=== PATIENT | female | born 1995 | race Caucasian/White ===

== ENCOUNTER 2017-04-06 19:24 | Observation (INO) | payer BC, MEDICAID ==
[2017-04-06] MEDS ORDERED: metroNIDAZOLE/SODIUM CHLORIDE 500 MG/100 ML BAG IV ONE (19:42)
[2017-04-06] MEDS ORDERED: LEVOFLOXACIN/D5W 750 MG/150 ML BAG IV ONE (19:43)
--- NOTE | 2017-04-06 19:46 | ERNOTE ---
Abdominal HPI - General Chief Complaint: Abdominal Pain Time Seen by Provider: 04/06/17 19:25 Source: patient Exam Limitations: no limitations - Immun/Allergies/Home Medications Immunizatons: IMMUNIZATION HX Immunizations Up to Date Yes History of Influenza Vaccine No Hx Pneumococcal Vaccination No Allergies/Adverse Reactions: Allergies No Known Allergies Allergy (Unverified 04/06/17 19:31) Home Medications: HOME MEDICATIONS NK [No Home Medication] 04/06/17 [Last Taken Unknown] - History of Present Illness Narrative: Patient presents with acute right lower quadrant abdominal pain onset of symptoms was last night has been getting progressively worse she rates the pain as moderate in intensity. Patient was seen at [facility] and lab work and CT were done and they revealed acute appendicitis with an 18,000 WBC count. Timing: constant, getting worse Quality: moderate Activities at Onset: none Associated Symptoms: Present: fever/chills Prior Abdominal Problems: Present: none Prior Treatment: Present: recently seen Review of Systems - Review of Systems Constitutional: Present: See HPI EYE: Present: no symptoms reported ENT: Present: no symptoms reported Respiratory: Present: no symptoms reported Cardiology: Present: no symptoms reported Gastrointestinal/Abdominal: Present: abdominal pain Genitourinary: Present: no symptoms reported Musculoskeletal: Present: no symptoms reported Skin: Present: no symptoms reported Neurological: Present: no symptoms reported Endocrine: Present: no symptoms reported Hematologic/Lymphatic: Present: no symptoms reported Psych: Present: no symptoms reported - Patient's Past Medical History Patient History - Medical: UTI'S Patient History - Cardiac/Respiratory: No pertinent hx Patient History - Cancer: No Hx of Cancer Patient History - Surgical Procedures: T & A, ENT Patient History - Other: None - Social History Living Situations: home Abuse History: No History of abuse Psych History: No pertinent hx Smoking Status: Current every day smoker Have you smoked in the past 12 months: Yes Alcohol Use: rarely Drug Use: none - Immunizations Immunizations Up to Date: Yes Hx Pneumococcal Vaccination: No History of Influenza Vaccine: No Physical Exam - Physical Exam General Appearance: Present: wd/wn, alert, moderate distress Eye Exam: Normal inspection: bilateral, PERRL: bilateral Ears, Nose, Throat: Present: normal ENT inspection, H, normal pharynx Neck: Present: normal inspection, nontender Respiratory: Present: no respiratory distress, normal breath sounds, no accessory muscle use, chest nontender, lungs clear Cardiovascular/Chest: Present: regular rate, rhythm, no murmur, normal peripheral pulses Gastrointestinal/Abdominal: Present: normal bowel sounds, nondistended, tenderness, guarding, rebound, McBurney sign Rectal Exam: Present: deferred Back Exam: Present: normal inspection, normal range of motion Extremity Exam: Present: normal inspection, non-tender, no edema, normal range of motion Neurological Exam: Present: alert, oriented, normal mood/affect Skin Exam: Present: normal color, warm/dry Lymphatic Exam: Present: no adenopathy ED Progress - Results and Orders Patient's Lab Results:: I have reviewed the patient's lab results. - Vital Signs Patient's Vital Signs:: I have reviewed the patient's vital signs. Vital Signs: Vital Signs 04/06/17 04/06/17 19:31 19:36 Temperature 37.2 C 37.2 C Pulse Rate 110 H 110 H Respiratory 16 15 Rate Blood Pressure 119/65 119/65 O2 Sat by Pulse 98 98 Oximetry - CT/Ultrasound CT/Ultrasound Narrative: CT was done and kick as reviewed by me which revealed acute appendicitis. - Progress/Reassessment Chief Complaint: Abdominal Pain Plan - Plan Plan: Patient will be admitted to hospital. I discussed case with Dr. Paige and then he asked that we give the patient 750 Levaquin 500 of Flagyl IV and she will be ready for surgery most likely first thing in the morning. Departure - Departure Clinical Impression: Appendicitis, acute Qualifiers: Acute appendicitis type: with localized peritonitis Qualified Code(s): K35.3 - Acute appendicitis with localized peritonitis Disposition: [facility] Condition: Fair
[2017-04-06] MEDS ORDERED: ONDANSETRON HCL/PF 2 MG/ML VIAL IV PRN (21:00)
[2017-04-06] MEDS ORDERED: ACETAMINOPHEN 650 MG SUPP.RECT RC PRN (21:01)
[2017-04-06] MEDS ORDERED: MORPHINE SULFATE 2 MG/ML DISP.SYRIN IV PRN (21:18)
[2017-04-06] MEDS: metroNIDAZOLE/SODIUM CHLORIDE 500 MG/100 ML BAG IV SCH (21:39)
[2017-04-06] MEDS: RINGER'S SOLUTION,LACTATED 1,000 ML IV PRN (21:39)
[2017-04-07] MEDS: metroNIDAZOLE/SODIUM CHLORIDE 500 MG/100 ML BAG IV SCH (05:27)
[2017-04-07] MEDS: RINGER'S SOLUTION,LACTATED 1,000 ML IV PRN (05:27)
--- NOTE | 2017-04-07 07:56 | HP ---
Chief Complaint - Chief Complaint Date of Service: 04/07/17 Time of Service: 07:53 Chief Complaint: Right flank pain History of Present Illness: Onset of right flank pain yesterday morning. ER [facility] had WBC 18K and CT c/w appendicitis. Transferred here for definitive therapy. - Patient's Past Medical History Patient History - Medical: No pertinent hx, UTI'S Patient History - Cardiac/Respiratory: No pertinent hx Patient History - Cancer: No Hx of Cancer Patient History - Surgical Procedures: T & A, ENT Patient History - Other: None LMP (Calendar): 03/01/17 - Family History Family History:: no untoward family reactions to anesthesia - Family History Mother Family History - Medical: No pertinent hx Father Family History - Medical: No pertinent hx - Social History Living Situations: spouse Abuse History: No History of abuse Psych History: No pertinent hx Smoking Status: Current every day smoker Have you smoked in the past 12 months: No Do you dip or chew tobacco: No Patient requests Smoking Cessation Consult: No Initiate information on Smoking Cessation: Yes Alcohol Use: rarely Drug Use: none - Immunizations Immunizations Up to Date: Yes Hx Pneumococcal Vaccination: No History of Influenza Vaccine: No Review Of Systems (GEN) - Review of Systems Misc: All systems neg except as marked Allergies/Adverse Reactions: Allergies Allergy/AdvReac Type Severity Reaction Status Date / Time No Known Allergies Allergy Verified 04/06/17 20:24 Home Medications: HOME MEDICATIONS NK [No Home Medication] 04/06/17 [Last Taken Unknown] Exam - Exam Vital Signs: Vital Signs - Last Taken Temp 36.2 C L 04/07/17 07:36 Pulse 78 04/07/17 07:36 Resp 18 04/07/17 07:36 BP 120/50 04/07/17 07:36 Pulse Ox 99 04/07/17 07:36 Constitutional: Present: Alert, Oriented x3, Cooperative, Well developed, Well nourished, No distress ENT Exam: Present: normal ENT inspection Eye Exam: bilateral eye: normal inspection Respiratory: Present: normal breath sounds, no respiratory distress Cardiovascular/Chest: Present: regular rate, rhythm, no murmur Abdomen: Present: Normal bowel sounds, other - tender right flank Extremity: Present: normal inspection Neurologic: Present: no motor/sensory deficits Diagnostic Studies: Laboratory Results Serum HCG, Qual Negative (NEGATIVE) 04/06/17 22:02 Assessment/Plan - Narrative Narrative: A: Acute appendicitis P: Plan lap appy. The options, risks, and benefits were reviewed fully. She seems to understand, asks appropriate questions, and desires to proceed.
[2017-04-07] MEDS ORDERED: RINGER'S SOLUTION,LACTATED 800 ML IV ONE (08:10)
[2017-04-07] MEDS ORDERED: BUPIVACAINE HCL/EPINEPHRINE 50 ML VIAL IJ ONE (08:30)
--- NOTE | 2017-04-07 09:23 | OR ---
Operative Report - Dictated Report Narrative: Date: 04/07/2017 Preop dx: acute appendicitis Postop dx: same Procedure: laparoscopic appendectomy Staff surgeon: Chi Paige MD Asst surgeon: Krzysztof Guerrero, M3 EBL: minimal Specimen: appendix Anesthesia: GETA Comps: none apparent Indications: WBC 18K, RLQ abdominal pain, CT c/w acute appendicitis Description: Pt placed in supine position. Following smooth induction of GETA, a nieves catheter was inserted and the abdomen was prepped and draped in a sterile fashion. All port sites were anesthetized with marcaine prior to incision. 5mm infraumbilical incision made and perforating towel clip placed for counter traction. Abdomen entered under direct vision with 5mm blunt port with a scope in the lumen of the trocar. Abdomen then insufflated to 15 mmHg with carbon dioxide. Under direct vision a suprapubic 12mm and LLQ 5mm port were inserted. Inspection revealed minimal peritoneal blood throughout. All port sites were hemostatic and this is likely a hemorrhagic ovarian cyst etiology. The ovaries were not visualized. The appendix had minimal inflammation and was not ruptured. The appendix was elevated and mesoappendix taken in continuity with a thunderbeat. The appendix was then transected at its base with an endoGIA. The appendix was placed in an endocatch bag and delivered from the abdomen through the suprapubic port. Inspection was carried out. The staple line was hemostatic. The pneumoperitoneum was evacuated and ports removed. Incisions closed with subcuticular 4-0 pds and sealed with dermabond. Pt tolerated the procedure well without apparent complications and was discharged from the OR in stable condition.
[2017-04-07] MEDS ORDERED: oxyCODONE HCL/ACETAMINOPHEN 1 TAB TABLET PO PRN (09:29)
[2017-04-07] MEDS ORDERED: RINGER'S SOLUTION,LACTATED 1,000 ML IV PRN (09:29)
[2017-04-07] MEDS ORDERED: MORPHINE SULFATE 2 MG/ML DISP.SYRIN IV PRN (09:39)
--- NOTE | 2017-04-07 10:36 | DS ---
Description of Stay: Pt admitted for acute appendicitis from [place]. Underwent lap appy and is discharged postop same day. Appendix was not perforated. Likely hemorrhagic ovarian cyst. Procedures Performed: see notes below List Procedures: Laparoscopic appendectomy Results and Findings: Non-perforated early acute appendicitis Discharge Disposition: Home self care Disposition: Home self-care Condition: Fair Discharge Activity: Activity as tolerated, No Lifting - x 1 wk Discharge Diet: General/regular food Complete Home Medications List: Complete Home Medication List: NK [No Home Medication] 04/06/17
[2017-04-07 13:36] VITALS: BP 121/67
== END 2017-04-07 14:02 | disposition home or self-care (01) ==
LOC: ER 19:24 → MS 19:48
PROVIDERS: ADMIT Specialist; ATTEND Specialist
PROC: 0DTJ4ZZ Resection of Appendix, Percutaneous Endoscopic Approach (ICD-10-PCS; principal; 2017-04-07 08:00)
DX: K35.80 Unspecified acute appendicitis (principal)
CPT/HCPCS: 44970; 84703; 88304; 96365; 96366; 96367; 96374; 99285; G0378

== ENCOUNTER 2020-05-30 06:07 | Inpatient (IN) ==
[2020-05-30] MEDS ORDERED: OXYTOCIN/0.9 % SODIUM CHLORIDE 30 UNITS/500 ML BAG IV ONE ×2 (06:49→19:35)
[2020-05-30] MEDS ORDERED: PENICILLIN G POTASSIUM 5 MILLIONUNT in DEXTROSE 5 % IN WATER 100 ML IV ONE ×2 (06:49)
[2020-05-30] MEDS ORDERED: RINGER'S SOLUTION,LACTATED 1,000 ML IV ONE (06:49)
[2020-05-30] MEDS ORDERED: ONDANSETRON 4 MG TAB.RAPDIS PO PRN (06:49)
[2020-05-30] MEDS: RINGER'S SOLUTION,LACTATED 1,000 ML IV PRN ×3 (07:29→18:07)
[2020-05-30] MEDS: PENICILLIN G POTASSIUM 2.5 MILLIONUNT in DEXTROSE 5 % IN WATER 100 ML IV SCH ×6 (10:51→18:45)
--- NOTE | 2020-05-30 15:42 | HP ---
Chief Complaint - Chief Complaint Date of Service: 05/30/20 Time of Service: 15:35 Chief Complaint: Labor induction History of Present Illness: 24 year old at 39w 6d who presented to labor and delivery for an elective IOL. She reports irregular ctx. She denies vb or lof. Medical History (Last Reviewed 05/30/20 @ 15:37 by Leydi Ann MD) Acute appendicitis Surgical History: Surgical History (Last Reviewed 05/30/20 @ 15:37 by Leydi Ann MD) History of placement of ear tubes History of appendectomy Hx of tonsillectomy Family History: Family History (Last Reviewed 05/30/20 @ 15:37 by Leydi Ann MD) Mother Alive and well Father Alive and well Social History: (Last Reviewed 05/30/20 @ 15:37 by Leydi Ann MD) Social History: adopted: No Marital status: household members: spouse, children number of children: 2 current occupational status: unemployed Highest education level completed: 12th grade, no diploma Sexually Active: Yes Service: No Tobacco: Smoking Status: Current every day smoker Alcohol: alcohol intake: never Substance Use: substance use type: does not use Dietary Habits: caffeine: Yes caffeine comment: 3 daily Type: coffee Review Of Systems (GEN) - Review of Systems Generalized/Overall Review: Present: No Symptoms Reported Misc: All systems neg except as marked Immunizations: IMMUNIZATION HX Immunizations Up to Date Yes History of Influenza Vaccine No Hx Pneumococcal Vaccination No Allergies/Adverse Reactions: Allergies Allergy/AdvReac Type Severity Reaction Status Date / Time No Known Allergies Allergy Verified 05/30/20 06:22 Home Medications: HOME MEDICATIONS vitamin no.138-folic acid 400 mcg-dha 25 mg chewable tablet 1 tab PO DAILY 11/27/19 [Last Taken 05/29/20] Exam - Exam Vital Signs: Vital Signs - Last Taken Temp 37 C 05/30/20 06:50 Pulse 98 05/30/20 06:50 Resp 16 05/30/20 06:50 BP 116/65 05/30/20 06:50 Pulse Ox 97 05/30/20 06:50 Constitutional: Present: Alert, Oriented x3, Cooperative ENT Exam: Present: hearing grossly normal Eye Exam: bilateral eye: normal inspection Neck: Present: normal inspection Back Exam: Present: normal inspection Breasts: Present: Exam deferred Respiratory: Present: lungs clear, normal breath sounds, no respiratory distress Cardiovascular/Chest: Present: regular rate, rhythm Abdomen: Present: soft, nontender, nondistended, no rebound tenderness /Rectal: Present: Other - 4/50/-2 AROM for clear fluid Extremity: Present: non-tender, no calf tenderness Skin Exam: Present: normal color, warm/dry, no cyanosis Neurologic: Present: alert, normal mood/affect, oriented x 3 Appearance: Present: appropriate appearance, appropriate insight, neat, no memory impairment Eye contact: Present: cooperative, good eye contact, normal speech Thoughts: Present: normal thought pattern Diagnostic Studies: Laboratory Results Blood Type O Positive 05/30/20 07:18 Antibody Screen Negative 05/30/20 07:18 Assessment/Plan - Narrative Narrative: 24 year old at 39w 6d 1. Elective IOL: On pitocin, AROM for augmentation 2. GBS positive: intrapartum prophylaxis
[2020-05-30] MEDS ORDERED: ONDANSETRON HCL/PF 2 MG/ML VIAL IV PRN (16:52)
[2020-05-30] MEDS ORDERED: BUPIVACAINE HCL/0.9 % NACL/PF 250 ML EP PRN (16:52)
[2020-05-30] MEDS ORDERED: NALOXONE HCL 1 MG/1 ML SYRG IV PRN (16:52)
[2020-05-30] MEDS ORDERED: fentaNYL CITRATE/PF 50 MCG/ML AMPUL IT SCH (17:00)
--- NOTE | 2020-05-30 17:50 | ANES ---
Anesthesia Pre Procedure Eval Vitals/Labs: Last Vital Signs Temp 37 C 05/30/20 06:50 Pulse 98 05/30/20 06:50 Resp 16 05/30/20 06:50 BP 116/65 05/30/20 06:50 Pulse Ox 97 05/30/20 06:50 HOME MEDICATIONS vitamin no.138-folic acid 400 mcg-dha 25 mg chewable tablet 1 tab PO DAILY 11/27/19 [Last Taken 05/29/20] Allergies/Adverse Reactions: Allergies Allergy/AdvReac Type Severity Reaction Status Date / Time No Known Allergies Allergy Verified 05/30/20 06:22 - Planned Procedure Planned Procedure: elective induction 39 wks +6 Medication List Reviewed:: Yes Allergies Verified: Yes Medical History (Last Reviewed 05/30/20 @ 17:49 by Paul Rowe CRNA) Acute appendicitis Surgical History (Last Reviewed 05/30/20 @ 17:49 by Paul Rowe CRNA) History of placement of ear tubes History of appendectomy Hx of tonsillectomy Family History (Last Reviewed 05/30/20 @ 17:49 by Paul Rowe CRNA) Mother Alive and well Father Alive and well - Family Anesthesia History Family History:: no untoward family reactions to anesthesia, no familial bleeding tendencies, no family history of clotting disorders, no family history of premature - Airway/Neck/Teeth Within Normal Limits:: Yes Teeth Condition: intact Neck Exam: full range of motion Mallampatti Score: 2 Thyromental (T-M) distance: > 6 cm Mandibulo Hyoid distance: > 3 cm - Respiratory Respiratory Physical: lungs clear Sleep Apnea currently treated: No Sleep Apnea by current assessment: No - Cardiovascular Tolerate Activity: Fair Heart Sounds: S1 & S2, Regular - Anesthesia Assessment and Plan ASA Class: PS, II, E Anesthesia Type Plan: Epidural - CSE for labor analgesia
--- NOTE | 2020-05-30 18:09 | ANES ---
Post Anesthesia Discharge - Transfer of Care Transfer of Care handoff given to nurse: Yes - Discharge from PACU Discharge from PACU when meets criteria: Yes - Comfortable post CSE.
--- NOTE | 2020-05-30 18:11 | ANES ---
Anesthesia Procedure Note Procedure Note: ANESTHESIA PROCEDURE NOTE Date of Procedure: 05/30/2020 Time of procedure: 1750. Performed by: JANE Landaverde CRNA, MSN Eligibility Counselor: Selam Mcleod RN. Preprocedure diagnosis: Active labor, labor pain. Post procedure diagnosis: Same. Procedure:Epidural for labor analgesia L3-4. Indications: Labor pain. Findings: See below. Details of the procedure: The patient was placed on the side of the bed in sitting positionand prepped with DuraPrep then draped in a sterile fashion. Lidocaine 1% was infiltrated to the skin and subcutaneous tissues at the level of the L3-4 interspace. An 18-gauge Touhy needle was used to approach the epidural space with loss of resistance technique. Once loss of resistance was achieved a 27-gauge spinal needle was passed through the epidural needle and CSF was contacted. After CSF returned, 20 mcg of fentanyl was injected in the spinal needle was removed the epidural catheter was then threaded approximately 4 cm in the epidural needle was removed. The catheter was taped in place and after careful aspiration 3 mL of 1.5% lidocaine with 1-200,000 epinephrine was injected without change in maternal heart rate or sensorium. . EBL: Minimal. Fluids: N/A. Specimen: N/A. Post procedure condition: The patient tolerated the procedure well with good relief. No complications were noted. Thank you for this consultation. Paul Rowe CRNA, ARNP, MSN
--- NOTE | 2020-05-30 18:16 | ANES ---
Post Anesthesia Assessment - Vital Signs Vitals: Last Vital Signs Temp 37 C 05/30/20 06:50 Pulse 98 05/30/20 06:50 Resp 16 05/30/20 06:50 BP 116/65 05/30/20 06:50 Pulse Ox 97 05/30/20 06:50 Airway Patency: Normal - Mental Status Level Of Consciousness: Awake, Alert, Appropriate - Pain Level Pain Score: 0 - N/V Assessment Nausea/Vomiting Presence: None Dehydration:: No
[2020-05-30] MEDS ORDERED: HYDROcodone/ACETAMINOPHEN 1 EACH TABLET PO PRN ×2 (19:35)
[2020-05-30] MEDS ORDERED: BISACODYL 10 MG SUPP.RECT RC PRN (19:35)
[2020-05-30] MEDS ORDERED: GLYCERIN/WITCH HAZEL LEAF 40 APPL BOX TP PRN (19:35)
[2020-05-30] MEDS ORDERED: SENNOSIDES 8.6 MG TABLET PO PRN (19:35)
[2020-05-30] MEDS ORDERED: HYDROCORTISONE 30 APPL TUBE TP PRN (19:35)
[2020-05-30] MEDS ORDERED: diphenhydrAMINE HCL 25 MG CAPSULE PO PRN (19:35)
[2020-05-30] MEDS ORDERED: BENZOCAINE/MENTHOL 81 SPRAY CAN TP PRN (19:35)
[2020-05-30] MEDS ORDERED: IBUPROFEN 800 MG TABLET PO PRN (19:35)
--- NOTE | 2020-05-30 19:35 | OR ---
Operative Report - Dictated Report Narrative: Date of delivery: 05/30/2020 Time of delivery: 1914 Gender: female weight: 3166 grams APGARS: 05/01 Procedure: Description of the procedure: The patient is a 24 year old at 39w 6d who presented to labor and delivery for an elective IOL. She received pitocin and was augmented with AROM. She progressed to complete dilation. She delivered a viable female infant in ENIO presentation. A loose nuchal cord was noted and it was reduced prior to delivery. The anterior shoulder delivered without difficulty followed by the rest of the infant. Cord clamping was delayed for 60 seconds due to vigorous infant. The cord was clamped and cut. Cord blood was collected. The placenta was delivered by expression and appeared intact. There were no lacerations. EBL: 100 mL Complications: none Specimens: cord blood History for MU Definition: * The number of deliveries resulting in a live the patient experienced prior to current hospitalization * The previous delivery of live twins or any live multiple gestation is considered one live event. *If primagravida or nulliparous is documented select zero for the number of previous live births. Live Events: 2
[2020-05-30] MEDS: PRENATAL VITS96/IRON FUM/FOLIC 1 TAB TABLET PO SCH (22:39)
[2020-05-30] MEDS: DOCUSATE SODIUM 100 MG CAPSULE PO SCH (22:39)
[2020-05-31] MEDS: PENICILLIN G POTASSIUM 2.5 MILLIONUNT in DEXTROSE 5 % IN WATER 100 ML IV SCH ×2 (01:32)
--- NOTE | 2020-05-31 09:21 | PN ---
Subjective - Date and Time Seen Date: 05/31/20 Time: 09:19 Subjective Narrative: Patient without complaints. Bleeding is minimal Objective Objective Narrative: See vital signs - Review of Systems Generalized/Overall Review: Reports: No Symptoms Reported Misc: All systems neg except as marked - Vitals Vitals: Last Vital Signs Temp 35.9 C L 05/31/20 08:32 Pulse 99 05/31/20 08:32 Resp 18 05/31/20 08:32 BP 116/63 05/31/20 08:32 Pulse Ox 96 05/31/20 08:32 - Exam Constitutional: Present: Alert, Oriented x3, Cooperative, No distress ENT Exam: Present: hearing grossly normal Abdomen: Present: soft, nontender, nondistended - fundus is firm Extremity: Present: non-tender, no calf tenderness Skin Exam: Present: normal color, warm/dry, no cyanosis Neurologic: Present: alert, normal mood/affect, oriented x 3 Appearance: Present: appropriate appearance, appropriate insight Eye contact: Present: cooperative, good eye contact, normal speech Thoughts: Present: normal thought pattern Cauti Physician Documentation - Urinary Catheter Management Urethral (Matthews) Urethral Indwelling: No Date of Insertion: 05/30/20 Time of Insertion: 18:30 Date of Removal: 05/30/20 Time of Removal: 19:03 Assessment/Plan Plan Narrative: PPD 1 s/p Doing well Discharge home Follow-up in 6 weeks or sooner for any other concerns
--- NOTE | 2020-05-31 09:22 | DS ---
OB Discharge Summary Delivery Date: 05/30/20 Delivery Time: 19:15 :: 3 Para:: 3 Gestational weeks:: 39 Gestational days:: 6 Intrapartum Procedures: Spontaneous Vaginal Delivery, Anesthesia - Epidural Procedures: None /OP Complications: No Complications Discharge Diagnosis: Term -Delivered - Discharge Information Date of Discharge: 05/31/20 Discharge Location: Home Disposition: Home self-care Condition: Good Activity on Discharge:: Activity as tolerated, Pelvic Rest Discharge Diet: General/regular food Complete Home Medications List: Complete Home Medication List: vitamin no.138-folic acid 400 mcg-dha 25 mg chewable tablet 1 tab PO DAILY 11/27/19 - Plan Discharge to:: Home Comment:: Routine Discharge Instructions Follow up in office in:: 6 weeks - [place] Information Weight (Grams): 3,166 Infant Sex: Female Score 1 min: 9 Score 5 min: 9 Circumcision: Not Applicable Infant Complications: None
[2020-05-31] MEDS: DOCUSATE SODIUM 100 MG CAPSULE PO SCH (09:49)
[2020-05-31] MEDS: PRENATAL VITS96/IRON FUM/FOLIC 1 TAB TABLET PO SCH (09:50)
[2020-05-31 20:27] VITALS: BP 125/65
== END 2020-05-31 20:30 | disposition home or self-care (01) | DRG 807 ==
LOC: OB 06:07
PROVIDERS: ADMIT Obstetrics & Gynecology; ATTEND Obstetrics & Gynecology